=== PATIENT | female | born 1995 | race Caucasian/White ===

== ENCOUNTER 2018-06-13 07:39 | Emergency (ER) | payer SELFPAY ==
[2018-06-13] MEDS ORDERED: Clindamycin HCl 150 MG Cap PO ONE (08:05)
[2018-06-13] MEDS ORDERED: HYDROmorphone 1 MG/ML Syringe IM ONE (08:06)
[2018-06-13] MEDS ORDERED: cefTRIAXone 1 GM, Lidocaine 1% 2.1 ML IM SCH ×2 (08:15)
--- NOTE | 2018-06-13 08:16 | EDM.PDOC ---
ED HPI GENERAL MEDICAL PROBLEM - General Chief Complaint: ENT Problem Stated Complaint: DENTAL COMPLAINT Time Seen by Provider: 06/13/18 07:54 Source of Information: Reports: Patient History Limitations: Reports: No Limitations - History of Present Illness INITIAL COMMENTS - FREE TEXT/NARRATIVE: The patient presents with dental pain and swelling. She said this all started on Thursday with some dental pain and the swelling increased to the left lower jaw. She saw her dentist on Thursday and he gave her a shot of Rocephin and put her on amoxicillin. Her dentist tried to drain the abscess but nothing would come out after the incision. She is having more thomson and swelling to the left lower jaw. She is to see the dentist on Thursday for further treatment. She has no fever or chills. 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 Left Lower Oral/Mouth Pain Score (Numeric/FACES): 8 - Related Data Allergies Allergy/AdvReac Type Severity Reaction Status Date / Time No Known Allergies Allergy Verified 10/03/17 17:26 CDT Home Meds: Home Meds Amoxicillin 500 mg PO TID 06/13/18 [History] Past Medical History HEENT History: Reports: None Cardiovascular History: Reports: None Respiratory History: Reports: None Gastrointestinal History: Reports: None Genitourinary History: Reports: None 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: Musculoskeletal History: Reports: Other (See Below) Neurological History: Reports: None Psychiatric History: Reports: Addiction, Anxiety Endocrine/Metabolic History: Reports: None Hematologic History: Reports: None Immunologic History: Reports: None Oncologic (Cancer) History: Reports: None Dermatologic History: Reports: None - Infectious Disease History Infectious Disease History: Reports: Chicken Pox - Past Surgical History HEENT Surgical History: Reports: Oral Surgery Social & Family History - Family History Family Medical History: Noncontributory - Tobacco Use Smoking Status *Q: Current Every Day Smoker Years of Tobacco use: 6 Packs/Tins Daily: 0.5 Used Tobacco, but Quit: No - Caffeine Use Caffeine Use: Reports: Soda - Recreational Drug Use Recreational Drug Use: No ED ROS ENT - Review of Systems Review Of Systems: See Below Constitutional: Reports: No Symptoms HEENT: Reports: Other (Left lower jaw swelling and tenderness) Respiratory: Reports: No Symptoms Cardiovascular: Reports: No Symptoms Endocrine: Reports: No Symptoms : Reports: No Symptoms Musculoskeletal: Reports: No Symptoms ED EXAM, ENT - Physical Exam Exam: See Below Exam Limited By: No Limitations General Appearance: Alert, No Apparent Distress Ears: Normal External Exam Nose: Normal Inspection Mouth/Throat: Other (Moderate swelling to the left lower jaw with pain upon palpation) Head: Atraumatic, Normocephalic Neck: Lymphadenopathy (L) Respiratory/Chest: No Respiratory Distress Extremities: Normal Inspection Neurological: Alert, Oriented, No Motor/Sensory Deficits ED I&D PROCEDURES - I&D Site: Left jaw line Skin prep: Saline Local anesthesia - Lidocaine (Xylocaine): Other (Sensorcaine 0.5%) Local Anesthetic Volume: 2cc Area Incised With: Needle Drainage: Purulent, Bloody Probed to Break Up Loculations: No Complications: No Course - Vital Signs Last Recorded V/S: Last Vital Signs Temp 97.8 F 06/13/18 07:45 Pulse 121 H 06/13/18 07:45 Resp 18 06/13/18 07:45 BP 118/67 06/13/18 07:45 Pulse Ox 98 06/13/18 07:45 - Orders/Labs/Meds Orders: Active Orders 24 hr Category Date Time Status cefTRIAXone [Rocephin] 1 gm Med 06/13/18 08:15 Active Lidocaine 1% [Xylocaine 1%] 2.1 ml IM Q24H Medication Orders Ceftriaxone Sodium 1 gm/ (Lidocaine HCl 2.1 ml) 0 gm IM Q24H MASON Last Admin: 06/13/18 08:17 Dose: 2.7 inj Meds: Medications Generic Name Dose Route Start Last Admin Trade Name Freq PRN Reason Stop Dose Admin Ceftriaxone Sodium 1 gm/ 0 gm 06/13/18 08:15 06/13/18 08:17 Lidocaine HCl 2.1 ml IM 2.7 inj Q24H MASON Administration Discontinued Medications Generic Name Dose Route Start Last Admin Trade Name Freq PRN Reason Stop Dose Admin Clindamycin HCl 450 mg 06/13/18 08:05 06/13/18 08:18 Cleocin PO 06/13/18 08:06 450 mg ONETIME ONE Administration Hydromorphone HCl 1 mg 06/13/18 08:06 06/13/18 08:18 Dilaudid IM 06/13/18 08:07 1 mg ONETIME ONE Administration - Re-Assessments/Exams Free Text/Narrative Re-Assessment/Exam: 06/13/18 08:16 I ordered another shot of rocephin. It appears she has had 2 shots in the past few days. I also gave he a shot of dilaudid and I will switch her to clindamycin. 06/13/18 08:42 I did attempt to aspirate the abscess. I found a fluid collection with the US. I used an 18 gauge needle to try to drain the abscess. There was some purulent drainage initially and then there was just blood. The patient is going back to the dentist tomorrow. She will be referred on to the oral surgeon if she is not getting better. Departure - Departure Time of Disposition: 08:45 Disposition: Home, Self-Care 01 Condition: Good Clinical Impression: Dental abscess - Discharge Information *PRESCRIPTION DRUG MONITORING PROGRAM REVIEWED*: No *COPY OF PRESCRIPTION DRUG MONITORING REPORT IN PATIENT MIGUELITO: No Referrals: PCP,None [Primary Care Provider] - Forms: ED Department Discharge Additional Instructions: Take the clindamycin 450mg 3 times per day and take the hydrocodone as needed for pain. Put a warm compress on your face for 10 minutes 5 times per day. Please return if you are worse. Follow up with you dentist tomorrow. - My Orders Last 24 Hours: My Active Orders 06/13/18 08:15 cefTRIAXone [Rocephin] 1 gm Lidocaine 1% [Xylocaine 1%] 2.1 ml IM Q24H - Assessment/Plan Last 24 Hours: My Active Orders 06/13/18 08:15 cefTRIAXone [Rocephin] 1 gm Lidocaine 1% [Xylocaine 1%] 2.1 ml IM Q24H
== END 2018-06-13 08:54 | disposition home or self-care (01) ==
LOC: JD.ED 07:39
DX: K04.7 Periapical abscess without sinus (principal); F17.210 Nicotine dependence, cigarettes, uncomplicated
CPT/HCPCS: 41800; 96372; 99283; A9270; J0696; J1170; J2001

== ENCOUNTER 2019-08-29 10:06 | Emergency (ER) | payer SELFPAY ==
--- NOTE | 2019-08-29 10:48 | EDM.PDOC ---
ED HPI GENERAL MEDICAL PROBLEM - General Chief Complaint: Upper Extremity Injury/Pain Stated Complaint: RT HAND FINGERS SWOLLEN Time Seen by Provider: 08/29/19 10:35 Source of Information: Reports: Patient History Limitations: Reports: No Limitations - History of Present Illness INITIAL COMMENTS - FREE TEXT/NARRATIVE: 24-year-old female presents to the ED for evaluation of right hand pain. It is actually more in her second and third fingers primarily involving the PIP joints. She reports for the last 2 weeks the pain has gradually intensified and wakes her up in the morning. She cannot make a fist in the morning and it takes a while with regular movement before it pain eases up. No known injuries to the fingers. 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 Therefore the hand is under duress i.e. lifting all day long. She is right-hand dominant. Also developing some slight pain in her left third finger recently. She denies pain in her feet knees wrists elbows. Family history of connective tissue disorder or rheumatoid arthritis etc. Not remember any injuries to the fingers patient reports at times the pain seems to radiate up her dorsal hand and into her forearm. Onset: Today Onset Date: 08/16/19 Duration: Day(s):, Getting Worse Location: Reports: Upper Extremity, Right (Pain primarily in the PIP joints of her right second and third fingers.) Quality: Reports: Ache, Throbbing, Other Severity: Moderate (Admitted mobility first thing in the morning.) Improves with: Reports: None Worsens with: Reports: Movement (Plastic try to make a fist worsening in the morning. Gets easier as the day goes on) Context: Reports: Other (Chinedu is occurrence). 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: NSAIDS (Ibuprofen as needed), Other (see below) (None.) Right Hand Pain Score (Numeric/FACES): 8 - Related Data Allergies Allergy/AdvReac Type Severity Reaction Status Date / Time No Known Allergies Allergy Verified 08/29/19 10:17 Home Meds: Home Meds predniSONE [Prednisone] 20 mg PO ASDIRECTED #15 tablet 08/29/19 [Rx] Past Medical History HEENT History: Reports: None Cardiovascular History: Reports: None Respiratory History: Reports: None Gastrointestinal History: Reports: None Genitourinary History: Reports: None 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: Musculoskeletal History: Reports: Other (See Below) Neurological History: Reports: None Psychiatric History: Reports: Addiction, Anxiety Endocrine/Metabolic History: Reports: None Hematologic History: Reports: None Immunologic History: Reports: None Oncologic (Cancer) History: Reports: None Dermatologic History: Reports: None - Infectious Disease History Infectious Disease History: Reports: Chicken Pox - Past Surgical History HEENT Surgical History: Reports: Oral Surgery Social & Family History - Family History Family Medical History: Noncontributory - Tobacco Use Smoking Status *Q: Current Every Day Smoker Years of Tobacco use: 9 Packs/Tins Daily: 0.5 - Caffeine Use Caffeine Use: Reports: Soda - Recreational Drug Use Recreational Drug Use: No - Living Situation & Occupation Living situation: Reports: Single Occupation: Employed Review of Systems - Review of Systems Review Of Systems: See Below Constitutional: Reports: No Symptoms Eyes: Reports: No Symptoms Ears: Reports: No Symptoms Nose: Reports: No Symptoms Mouth/Throat: Reports: No Symptoms Respiratory: Reports: No Symptoms Cardiovascular: Reports: No Symptoms GI/Abdominal: Reports: No Symptoms Musculoskeletal: Reports: Hand Pain ED EXAM, GENERAL - Physical Exam Exam: See Below Exam Limited By: No Limitations General Appearance: Alert, WD/WN, No Apparent Distress, Other (Vital signs show temperature 36.2. Heart rate 79 sinus respiratory is 20 O2 sats 96% on room air. BP 117/63) Extremities: Other (Emanation was limited to the right and left hands. There is some's very slight swelling of the proximal phalanx and up to the PIP joint of particularly the right third finger but also mildly on the right second finger in the same distribution. There is some pain on squeeze test of the PIP joints. The MCP joints appear to be normal. On the left hand she has some erythema of the third finger dorsally. Again some mild pain over the PIP joint. There is no inflammation of the MCP joints to suggest rheumatoid arthritis. She is able to make a full fist at this time although she reports its painful.) Neurological: Alert, Oriented, CN II-XII Intact, Normal Cognition, Normal Gait Psychiatric: Normal Affect, Normal Mood Skin Exam: Warm, Dry, Intact, Normal Color, No Rash Course - Vital Signs Last Recorded V/S: Last Vital Signs Temp 36.2 C 08/29/19 10:14 Pulse 79 08/29/19 10:14 Resp 20 08/29/19 10:14 BP 117/63 08/29/19 10:14 Pulse Ox 96 08/29/19 10:14 - Radiology Interpretation Free Text/Narrative:: 24-year-old female presents to the ED with painful finger joints particular the PIP joints of both her right second and third fingers. No known injuries. She states is been painful for somewhere between 10 and 14 days. It is worse first thing in the morning and wakes her up. She states she has very limited mobility first thing in the morning due to stiffness and pain. Over period of an hour she can usually work the stiffness and pain out of the hand. 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 She has no known injuries to the fingers. At present she has full range of motion with some pain on squeeze test of the PIP joints. There is mild soft tissue swelling in the proximal phalanges of both the second and third fingers of the right hand. Of note she is right-hand dominant. He denies possibility of . Plan she will have three-view x-ray of her right hand performed. - Re-Assessments/Exams Free Text/Narrative Re-Assessment/Exam: 08/29/19 11:34 the right hand reveal soft tissue swelling along the PIP joints of the second and third fingers. No obvious destructive changes appreciated in any of the joints in her hand. I suspect she is jammed up the joints and cause the current pain syndrome. She is too young to really have developed significant osteoarthritic change. Plan Deltasone 20 mg twice daily for 5 days with breakfast and supper and then once in the morning only for another 5 days. She can still take Motrin and/or Aleve as needed for pain relief. Departure - Departure Time of Disposition: 11:35 Disposition: Home, Self-Care 01 Condition: Fair Clinical Impression: Synovitis of right hand - Discharge Information *PRESCRIPTION DRUG MONITORING PROGRAM REVIEWED*: Not Applicable *COPY OF PRESCRIPTION DRUG MONITORING REPORT IN PATIENT MIGUELITO: Not Applicable Prescriptions: predniSONE [Prednisone] 20 mg PO ASDIRECTED #15 tablet Referrals: PCP,None [Primary Care Provider] - Forms: ED Department Discharge, ED Return to Work/School Form Additional Instructions: Evaluation in the emergency room today in regards to pain and swelling of the second and third fingers in the PIP joints. History of injury. Pain syndrome for between 10 and 14 days. X-rays of the hands show no abnormalities of the bones or joints. However examination reveals swelling of the PIP joints of both the second and third fingers. This means there is an inflammation of the joint lining causing current pain and limited mobility due to swelling. Suggest treatment with Aleve 2 tablets every 8 hours to reduce pain and inflammation. Deltasone or prednisone 20 mg in the morning and at bedtime for 5 days then once in the morning only for another 5 days to reduce pain and inflammation. If pain comes back or swelling comes back after finishing the medication please follow- up with your personal care physician for further investigations Sepsis Event Note (ED) - Evaluation Sepsis Screening Result: No Definite Risk - Focused Exam Vital Signs: Vital Signs Temp Pulse Resp BP Pulse Ox 08/29/19 10:14 36.2 C 79 20 117/63 96
--- NOTE | 2019-08-29 10:59 | CR ---
Right hand: 4 views of the right hand were obtained. Comparison: No prior hand exam. Joint spaces are maintained. No fracture, dislocation or other bony abnormality is appreciated. Impression: 1. No abnormality is appreciated on 4 view right hand exam. Diagnostic code #1 This report was dictated in MDT
== END 2019-08-29 11:47 | disposition home or self-care (01) ==
LOC: JD.ED 10:06
DX: M65.9 Synovitis and tenosynovitis, unspecified (principal); F17.210 Nicotine dependence, cigarettes, uncomplicated
CPT/HCPCS: 73130-26-RT; 73130-RT; 99283; 99283-25

== ENCOUNTER 2019-11-11 12:03 | Emergency (ER) | payer SELFPAY ==
--- NOTE | 2019-11-11 12:58 | EDM.PDOCBH ---
ED HPI GENERAL MEDICAL PROBLEM - General Chief Complaint: Drug or Alcohol Abuse Stated Complaint: MED CLEARANCE Time Seen by Provider: 11/11/19 12:57 Source of Information: Reports: Patient History Limitations: Reports: No Limitations - History of Present Illness INITIAL COMMENTS - FREE TEXT/NARRATIVE: 24-year-old female presents to the ED for medical clearance examination in [facility] for admission to the [facility] crisis center bed here in [place]. She states that she is . By dates she had would be 13 weeks gestation with last almost a period around 08 August. She has a chronic opioid addiction. She states she used to be a heroin user from age [age] and then became sober. She has been smoking opioids since May and June of this year primarily Roxicodone. Last use was yesterday. She rarely drinks any alcohol. She smokes 10 to 15 cigarettes daily. She does smoke marijuana intermittently. She denies any recent intravenous drug use. She has used methamphetamines in the past as well but nothing for the last 2 to 3 years. Onset: Other (Being admitted to [facility] center to kick opioid addiction) Duration: Chronic Location: Reports: Generalized (Chronic polysubstance abuse.) Severity: Moderate Improves with: Reports: None Worsens with: Reports: None Context: Reports: Other (Polysubstance abuse most Jayant with opioid addiction.). 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 (see below) (None.) - Related Data Allergies Allergy/AdvReac Type Severity Reaction Status Date / Time No Known Allergies Allergy Verified 11/11/19 12:25 Home Meds: Home Meds LORazepam [Ativan] 1 mg PO ASDIRECTED #10 tablet 11/11/19 [Rx] Past Medical History HEENT History: Reports: None Cardiovascular History: Reports: None Respiratory History: Reports: None Gastrointestinal History: Reports: None Genitourinary History: Reports: None 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 He was methamphetamines in the past. Uses marijuana as needed. Rarely drinks alcohol) Endocrine/Metabolic History: Reports: None Hematologic History: Reports: None Immunologic History: Reports: None Oncologic (Cancer) History: Reports: None Dermatologic History: Reports: None - Infectious Disease History Infectious Disease History: Reports: Chicken Pox - Past Surgical History HEENT Surgical History: Reports: Oral Surgery Social & Family History - Family History Family Medical History: Noncontributory - Tobacco Use Smoking Status *Q: Current Every Day Smoker Years of Tobacco use: 9 Packs/Tins Daily: 0.5 - Caffeine Use Caffeine Use: Reports: Coffee, Soda - Recreational Drug Use Recreational Drug Use: Yes Drug Use in Last 12 Months: Yes Recreational Drug Type: Reports: Other (see below) Other Recreational Drug Type: "Krystina" Recreational Drug Use Frequency: Daily - Living Situation & Occupation Living situation: Reports: Single Occupation: Employed ED ROS GENERAL - Review of Systems Review Of Systems: See Below Constitutional: Reports: Malaise, Weakness, Fatigue, Decreased Appetite. Denies: Fever, Chills HEENT: Reports: No Symptoms Respiratory: Reports: No Symptoms Endocrine: Reports: Fatigue (He believes is due to .) GI/Abdominal: Reports: Constipation (Occasional problems with constipation.) : Reports: Frequency Musculoskeletal: Reports: No Symptoms Skin: Reports: No Symptoms Neurological: Reports: No Symptoms Psychiatric: Reports: Cravings (Opioid addiction) Hematologic/Lymphatic: Reports: No Symptoms Immunologic: Reports: No Symptoms ED EXAM, BEHAVIORAL HEALTH - Physical Exam Exam: See Below Exam Limited By: No Limitations General Appearance: Alert, WD/WN, No Apparent Distress, Other (. Glazed and she appears slightly high. Temperature is 36.6. Pulse is 88 and sinus respiratory to 16 with O2 sats of 96% room air BP 109/59.) Eye Exam: Bilateral Eye: Normal Inspection (The glazed appearance to the eyes suggestive of intoxication), PERRL Throat/Mouth: Other Head: Atraumatic, Normocephalic (Lips are mildly dry is her tongue as does her tongue.) Neck: Normal Inspection, Supple, Non-Tender, Full Range of Motion. No: Lymphadenopathy (L), Lymphadenopathy (R) Respiratory/Chest: No Respiratory Distress, Lungs Clear, Normal Breath Sounds, No Accessory Muscle Use, Chest Non-Tender. No: Rhonchi, Wheezing Cardiovascular: Normal Peripheral Pulses, Regular Rate, Rhythm, No Edema, No Gallop, No Murmur, No Rub GI/Abdominal: Normal Bowel Sounds, Soft, Non-Tender, No Organomegaly, No Distention, No Abnormal Bruit, Pelvis Stable, Other (I could not palpate the uterus suprapubically.) Back Exam: Normal Inspection, Full Range of Motion. No: CVA Tenderness (L), CVA Tenderness (R) Extremities: Normal Inspection, Normal Range of Motion, Non-Tender, No Pedal Edema Neurological: Alert, Normal Mood/Affect, CN II-XII Intact, Normal Cognition, No Motor/Sensory Deficits, Oriented x 3 Psychiatric: Alert, Normal Affect, Normal Cognition, Normal Mood, Oriented Skin Exam: Warm, Dry, Intact, Normal color, No rash, Other (He has no evidence of any recent track mcgee to suggest intravenous drug use.) COURSE, BEHAVIORAL HEALTH COMP - Course Vital Signs: Last Vital Signs Temp 36.4 C 11/11/19 16:30 Pulse 83 11/11/19 16:30 Resp 16 11/11/19 16:30 BP 141/126 H 11/11/19 16:30 Pulse Ox 97 11/11/19 16:30 Orders, Labs, Meds: Laboratory Tests 11/11/19 11/11/19 11/11/19 Range/Units 13:20 13:20 13:20 WBC 9.03 (3.98-10.04) K/mm3 RBC 3.77 L (3.98-5.22) M/mm3 Hgb 10.6 L (11.2-15.7) gm/dl Hct 32.8 L (34.1-44.9) % MCV 87.0 (79.4-94.8) fl MCH 28.1 (25.6-32.2) pg MCHC 32.3 (32.2-35.5) g/dl RDW Std Deviation 42.9 (36.4-46.3) fL Plt Count 215 (182-369) K/mm3 MPV 11.1 (9.4-12.3) fl Neut % (Auto) 64.4 (34.0-71.1) % Lymph % (Auto) 26.1 (19.3-51.7) % [place] % (Auto) 6.5 (4.7-12.5) % Eos % (Auto) 2.4 (0.7-5.8) Baso % (Auto) 0.4 (0.1-1.2) % Neut # (Auto) 5.80 (1.56-6.13) K/mm3 Lymph # (Auto) 2.36 (1.18-3.74) K/mm3 [place] # (Auto) 0.59 H (0.24-0.36) K/mm3 Eos # (Auto) 0.22 (0.04-0.36) K/mm3 Baso # (Auto) 0.04 (0.01-0.08) K/mm3 Sodium 137 (136-145) mEq/L Potassium 3.2 L (3.5-5.1) mEq/L Chloride 105 (98-107) mEq/L Carbon Dioxide 24 (21-32) mEq/L Anion Gap 11.2 (5-15) BUN 13 (7-18) mg/dL Creatinine 0.6 (0.55-1.02) mg/dL Est Cr Clr Drug Dosing 123.77 mL/min Estimated GFR (MDRD) > 60 (>60) mL/min BUN/Creatinine Ratio 21.7 H (14-18) Glucose 99 (74-106) mg/dL Calcium 7.6 L (8.5-10.1) mg/dL Total Bilirubin 0.3 (0.2-1.0) mg/dL AST 14 L (15-37) U/L ALT 14 (14-59) U/L Alkaline Phosphatase 42 L (46-116) U/L Total Protein 5.7 L (6.4-8.2) g/dl Albumin 2.6 L (3.4-5.0) g/dl Globulin 3.1 gm/dL Albumin/Globulin Ratio 0.8 L (1-2) TSH 3rd Generation 0.937 (0.358-3.74) uIU/mL Urine Opiates Screen (CXDGUP=666) Ur Buprenorphine Scrn (CUTOFF=10) Ur Oxycodone Screen (IXP5SX=447) Urine Methadone Screen (WSRPVW=827) Ur Propoxyphene Screen (AAIRVB=753) Ur Barbiturates Screen (MMTXTZ=756) Ur Tricyclics Screen (PNYYJQ=266) Ur Phencyclidine Scrn (CUTOFF=25) Ur Amphetamine Screen (EHBNBP=449) U Methamphetamines Scrn (MHKPRF=722) U Benzodiazepines Scrn (LXRGIB=016) U Cocaine Metab Screen (IJFDUI=037) U Marijuana (THC) Screen (CUTOFF=50) Ethyl Alcohol 0.00 (0.00) gm% Hepatitis C Antibody Positive H (NEGATIVE) 11/11/19 Range/Units 13:30 WBC (3.98-10.04) K/mm3 RBC (3.98-5.22) M/mm3 Hgb (11.2-15.7) gm/dl Hct (34.1-44.9) % MCV (79.4-94.8) fl MCH (25.6-32.2) pg MCHC (32.2-35.5) g/dl RDW Std Deviation (36.4-46.3) fL Plt Count (182-369) K/mm3 MPV (9.4-12.3) fl Neut % (Auto) (34.0-71.1) % Lymph % (Auto) (19.3-51.7) % [place] % (Auto) (4.7-12.5) % Eos % (Auto) (0.7-5.8) Baso % (Auto) (0.1-1.2) % Neut # (Auto) (1.56-6.13) K/mm3 Lymph # (Auto) (1.18-3.74) K/mm3 [place] # (Auto) (0.24-0.36) K/mm3 Eos # (Auto) (0.04-0.36) K/mm3 Baso # (Auto) (0.01-0.08) K/mm3 Sodium (136-145) mEq/L Potassium (3.5-5.1) mEq/L Chloride (98-107) mEq/L Carbon Dioxide (21-32) mEq/L Anion Gap (5-15) BUN (7-18) mg/dL Creatinine (0.55-1.02) mg/dL Est Cr Clr Drug Dosing mL/min Estimated GFR (MDRD) (>60) mL/min BUN/Creatinine Ratio (14-18) Glucose (74-106) mg/dL Calcium (8.5-10.1) mg/dL Total Bilirubin (0.2-1.0) mg/dL AST (15-37) U/L ALT (14-59) U/L Alkaline Phosphatase (46-116) U/L Total Protein (6.4-8.2) g/dl Albumin (3.4-5.0) g/dl Globulin gm/dL Albumin/Globulin Ratio (1-2) TSH 3rd Generation (0.358-3.74) uIU/mL Urine Opiates Screen Negative (IGVZSK=743) Ur Buprenorphine Scrn Negative (CUTOFF=10) Ur Oxycodone Screen Negative (IWT5JK=967) Urine Methadone Screen Negative (FXMLQQ=253) Ur Propoxyphene Screen Negative (EUCDCV=351) Ur Barbiturates Screen Negative (SAAVXC=525) Ur Tricyclics Screen Negative (WECVFT=875) Ur Phencyclidine Scrn Negative (CUTOFF=25) Ur Amphetamine Screen Presumptive positive H (YQLQBC=074) U Methamphetamines Scrn Presumptive positive H (PDHHQI=266) U Benzodiazepines Scrn Presumptive positive H (YYBWIC=302) U Cocaine Metab Screen Negative (LNWCFL=288) U Marijuana (THC) Screen Presumptive positive H (CUTOFF=50) Ethyl Alcohol (0.00) gm% Hepatitis C Antibody (NEGATIVE) Re-Assessment/Re-Exam: Patient presents to the ED for medical clearance examination in preparation for possible admission to the residential crisis center. She is 13 weeks gestation 1 para 0. She has been smoking opioids over since May and July of this year. Primarily Roxicodone. Last use was yesterday. Occasional marijuana use. Nicotine addiction 10 cigarettes daily rare alcohol use. Has not used any intravenous drugs for the last 2 years. She is not sure of her hepatitis C status. Plan routine labs will be collected as well as a urine drug screen and blood alcohol level. Re-Assessment/Re-Exam Date: 11/11/19 (Sodium is 137 potassium slightly low at 3.2. Chloride 105 with a bicarb of 24. Anion gap is 11.2. BUN is 13. Creatinine is 0.6. GFR is greater than 60. Glucose is 99 with a calcium slightly low at 7.6 indicating she is not been eating much lately. Liver function is normal. Total protein is 5.7 with an albumin fraction low at 2.6 again from not eating much. TSH is normal at 0.937. Blood alcohol is 0.00 hepatitis C antibody positive.) Re-Assessment/Re-Exam Time: 15:07 (Urine drug screen is presumptively positive for amphetamines and methamphetamines benzodiazepines and marijuana. Blood alcohol is 0.00) Medical Clearance: 11/11/19 16:33 Patient is cleared medically therefore for admission to the residential crisis center. I will write a prescription for Ativan 1 mg strength to be used 1 every 8 hours for the next 2 days and then 1 every 12 hours for 2 more days to help with methamphetamine withdrawal. Departure - Departure Time of Disposition: 16:34 Disposition: Home, Self-Care 01 Condition: Fair Clinical Impression: Polysubstance abuse, Second trimester , Drug dependence - Discharge Information *PRESCRIPTION DRUG MONITORING PROGRAM REVIEWED*: Not Applicable *COPY OF PRESCRIPTION DRUG MONITORING REPORT IN PATIENT MIGUELITO: Not Applicable Prescriptions: LORazepam [Ativan] 1 mg PO ASDIRECTED #10 tablet Instructions: Substance Use Disorder, Alcohol Use During , Finding Treatment for Addiction Referrals: Alondra Marie MD [Primary Care Provider] - Forms: ED Department Discharge Additional Instructions: Evaluation in the emergency room today in regards to medical clearance examination for admission to the residential crisis center to help you get clean from drug dependency. Urine drug screen today was positive for methamphetamines, amphetamines and marijuana. It was negative for opioids which you state you recently ingested. It was also positive for benzodiazepines. Hepatitis C screen was also positive from previous intravenous drug use. It should be checked for the type of virus after you are finished with the to see if you are a candidate for hepatitis C treatment. Current drugs cannot be used in . Prescription written for Ativan to be taken 1 tablet every 8 hours for the next 2 days and then 1 tablet every 12 hours for 2 days to assist with withdrawal from methamphetamines and other stimulants. Sepsis Event Note (ED) - Evaluation Sepsis Screening Result: No Definite Risk
== END 2019-11-11 16:46 | disposition home or self-care (01) ==
LOC: JD.ED 12:03
DX: O99.322 Drug use complicating pregnancy, second trimester (principal); O99.332 Smoking (tobacco) complicating pregnancy, second trimester; F17.210 Nicotine dependence, cigarettes, uncomplicated
CPT/HCPCS: 36415; 80053; 80306; 80307; 84443; 85025; 86803; 99282; 99284

== ENCOUNTER 2020-03-22 10:21 | Emergency (ER) | payer SELFPAY ==
--- NOTE | 2020-03-22 10:35 | EDM.PDOC ---
ED HPI GENERAL MEDICAL PROBLEM - General Chief Complaint: General Stated Complaint: SWELLING OF HANDS X 1 WEEKS AND HIVES X 1 DAY Time Seen by Provider: 03/22/20 10:35 - History of Present Illness INITIAL COMMENTS - FREE TEXT/NARRATIVE: 24-year-old female returns the emergency room with hand pain and swelling mostly involving her left hand. She also has a rash developing on the right side of her neck. For the last several weeks patient's had increasing pain in her left hand and to a lesser degree in her right hand involving her middle finger and to a lesser degree index finger and the radial aspect of her ring finger. She awakens and has some significant discomfort this gets better throughout the day. The patient has had a similar problem in the past involving both hands and it improved on prednisone. Patient broke out in a rash on the right side of her neck couple of days ago. It pérez she is not sure if is getting any worse from yesterday. She has a history of having shingles in the past. 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: Musculoskeletal History: Reports: Other (See Below) Neurological History: Reports: None Psychiatric History: Reports: Addiction, Anxiety Endocrine/Metabolic History: Reports: None Hematologic History: Reports: None Immunologic History: Reports: None Oncologic (Cancer) History: Reports: None Dermatologic History: Reports: None - Infectious Disease History Infectious Disease History: Reports: Chicken Pox - Past Surgical History HEENT Surgical History: Reports: Oral Surgery Social & Family History - Family History Family Medical History: No Pertinent Family History - Caffeine Use Caffeine Use: Reports: Coffee, Soda - Living Situation & Occupation Living situation: Reports: Single Occupation: Employed ED ROS GENERAL - Review of Systems Review Of Systems: See Below Constitutional: Reports: No Symptoms HEENT: Reports: No Symptoms Respiratory: Reports: No Symptoms Cardiovascular: Reports: No Symptoms GI/Abdominal: Reports: No Symptoms ED EXAM, GENERAL - Physical Exam Exam: See Below Exam Limited By: No Limitations General Appearance: Alert, No Apparent Distress Eye Exam: Bilateral Eye: Normal Inspection Ears: Normal External Exam, Normal Canal, Hearing Grossly Normal, Normal TMs Nose: Normal Inspection, Normal Mucosa, No Blood Throat/Mouth: Normal Inspection, Normal Lips, Normal Teeth, Normal Gums, Normal Oropharynx, Normal Voice, No Airway Compromise Head: Atraumatic, Normocephalic Neck: Normal Inspection, Supple, Non-Tender, Full Range of Motion Respiratory/Chest: No Respiratory Distress, Lungs Clear, Normal Breath Sounds Cardiovascular: Regular Rate, Rhythm, No Edema, No Murmur Extremities: Other (Examination of her left hand shows numbness and discomfort in the carpal tunnel distribution sparing the thumb however. She has no involvement on the ulnar aspect of the ring finger and has involvement in the radial aspect of the ring finger middle finger is the worst. She has a positive Tinel's sign. Reverse Phalen's is positive as well. Patient gets some discomfort like this in her right hand as well but it is not too bad at this time.) Skin Exam: Other (Patient is developing a rash on the right side of her neck that almost follows a dermatomal distribution with a couple of satellite lesions some of these are blistering looks like one area has ruptured and it has a burning sensation according to the patient this could be consistent with early shingles.) Course - Vital Signs Last Recorded V/S: Last Vital Signs Temp 36.2 C 03/22/20 10:28 Pulse 106 H 03/22/20 10:28 Resp 16 03/22/20 10:28 BP 126/70 03/22/20 10:28 Pulse Ox 98 03/22/20 10:28 - Re-Assessments/Exams Free Text/Narrative Re-Assessment/Exam: 03/22/20 11:12 Recommended the patient take up some [id number] wrist splints to wear mostly at night. We will start naproxen. I will start her on Valtrex. The patient was seen here almost a year ago with what sounds like an inflammatory arthritis. At this time she does not have any significant joint swelling synovium does not palpate. However there is some uncertainty with this and I have strongly recommended that patient establish with a regular physician for continuity of care and if she has continued problems with her hand to start a rheumatology work-up. Departure - Departure Time of Disposition: 11:14 Disposition: Home, Self-Care 01 Clinical Impression: Carpal tunnel syndrome of left wrist, Shingles - Discharge Information Referrals: PCP,None [Primary Care Provider] - Forms: ED Department Discharge Additional Instructions: Return to the emergency room with any questions problems or worsening symptoms. You have been started on 2 medications. The first 1 is Valtrex or valacyclovir, this is an antiviral for suspected shingles developing on your neck. The second is naproxen this is like ibuprofen except only needs to be taken twice daily take it with your morning and evening meals you may discontinue this when your hand feel better. 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 They are to be worn primarily at night. However, you can use them during the day. Sepsis Event Note (ED) - Focused Exam Vital Signs: Vital Signs Temp Pulse Resp BP Pulse Ox 03/22/20 10:28 36.2 C 106 H 16 126/70 98
== END 2020-03-22 11:26 | disposition home or self-care (01) ==
LOC: JD.ED 10:21
DX: G56.02 Carpal tunnel syndrome, left upper limb (principal); B02.9 Zoster without complications; Z91.048 Other nonmedicinal substance allergy status
CPT/HCPCS: 99283

== ENCOUNTER 2020-04-17 12:53 | Emergency (ER) | payer SELFPAY ==
[2020-04-17] MEDS ORDERED: Lidocaine 1% 10 ML MDV INJECT ONE (13:13)
--- NOTE | 2020-04-17 13:20 | EDM.PDOC ---
ED HPI GENERAL MEDICAL PROBLEM - General Chief Complaint: Lower Extremity Injury/Pain Stated Complaint: ABSCESS ON THE BOTTOM OF FOOT Time Seen by Provider: 04/17/20 13:06 Source of Information: Reports: Patient, RN Notes Reviewed History Limitations: Reports: No Limitations - History of Present Illness INITIAL COMMENTS - FREE TEXT/NARRATIVE: Patient is a 24-year-old female who presents to the ED for a abscess on the bottom of her right foot. Patient noticed this started roughly 2 days ago, she is not aware of having any foreign object that she stepped on, or any other ins ulting injury. She notes that it is just getting increasingly painful and increasing in size. She has not lost any range of motion to her foot however again does states is very painful to walk on. She has been using some [id number] ibuprofen and heat but nothing seems to be working much. Patient's not had any fevers or chills, cough or shortness of breath, or any other sick-like symptoms. The area in question is roughly grape size. Treatments SEAM FINISHER: Reports: NSAIDS Right Foot Pain Score (Numeric/FACES): 10 - Related Data Allergies Allergy/AdvReac Type Severity Reaction Status Date / Time nickel Allergy Severe Itching Verified 04/17/20 13:05 Home Meds: Home Meds Naproxen [Naprosyn] 500 mg PO BID #20 tab 03/22/20 [Rx] Doxycycline [Vibramycin] 100 mg PO BID 7 Days #14 tab 04/17/20 [Rx] traMADol [Ultram] 50 mg PO Q6H PRN #6 tab 04/17/20 [Rx] Past Medical History HEENT History: Reports: None Cardiovascular History: Reports: None Respiratory History: Reports: None Gastrointestinal History: Reports: None Genitourinary History: Reports: None 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: Musculoskeletal History: Reports: Other (See Below) Neurological History: Reports: None Psychiatric History: Reports: Addiction, Anxiety Endocrine/Metabolic History: Reports: None Hematologic History: Reports: None Immunologic History: Reports: None Oncologic (Cancer) History: Reports: None Dermatologic History: Reports: None - Infectious Disease History Infectious Disease History: Reports: Chicken Pox, Hepatitis C - Past Surgical History HEENT Surgical History: Reports: Oral Surgery Social & Family History - Family History Family Medical History: No Pertinent Family History Oncologic: Reports: Breast - Tobacco Use Tobacco Use Status *Q: Current Every Day Tobacco User Years of Tobacco use: 10 Packs/Tins Daily: 0.5 - Caffeine Use Caffeine Use: Reports: Coffee, Soda, Tea - Recreational Drug Use Recreational Drug Use: No - Living Situation & Occupation Living situation: Reports: Single Occupation: Employed Review of Systems - Review of Systems Review Of Systems: Comprehensive ROS is negative, except as noted in HPI. ED EXAM, GENERAL - Physical Exam Exam: See Below Exam Limited By: No Limitations General Appearance: Alert, WD/WN, No Apparent Distress, Anxious (pt does appear to be somewhat anxious and picking at her hands) Respiratory/Chest: No Respiratory Distress, Lungs Clear, Normal Breath Sounds, No Accessory Muscle Use, Chest Non-Tender Cardiovascular: Normal Peripheral Pulses, Regular Rate, Rhythm, No Edema Peripheral Pulses: 2+: Radial (L), Radial (R), Dorsalis Pedis (L), Dorsalis Pedis (R) Extremities: Normal Range of Motion, Normal Capillary Refill, Other (roughly grape sized area to the plantar surface of the Right midline foot.). No: Increased Warmth, Redness Neurological: Alert, Oriented, Normal Cognition, No Motor/Sensory Deficits Psychiatric: Normal Affect, Normal Mood Skin Exam: Warm, Dry, Intact, Normal Color, No Rash ED TRAUMA EXTREMITY PROCEDURES - I&D Site: R plantar foot Skin Prep: Chlorhexidine (Hibiciens), Saline Local Anesthesia: Lidocaine: 1% Plain Local Anesthetic Volume: 4cc, 5cc Area Incised With: 11 Blade Drainage: Purulent, Bloody (pink tinged fluid), Small Amount Probed to Break Up Loculations: Yes Packed With: 1/2 in. Iodoform Sterile Dressing: Adhesive Dressing Complications: No Course - Vital Signs Last Recorded V/S: Last Vital Signs Temp 98.8 F 04/17/20 13:07 Pulse 96 04/17/20 13:07 Resp 16 04/17/20 13:07 BP 121/72 04/17/20 13:07 Pulse Ox 99 04/17/20 13:07 - Orders/Labs/Meds Orders: Active Orders 24 hr Category Date Time Status Foot 2V Rt [CR] Stat Exams 04/17/20 13:19 Ordered Meds: Medications Discontinued Medications Generic Name Dose Route Start Last Admin Trade Name Freminor PRN Reason Stop Dose Admin Lidocaine HCl 10 ml 04/17/20 13:13 04/17/20 13:31 Xylocaine 1% INJECT 04/17/20 13:14 10 ml ONETIME ONE Administration - Re-Assessments/Exams Free Text/Narrative Re-Assessment/Exam: 04/17/20 13:33 Patient presents to the ED for an abscess on the bottom of her foot, said she did not know she stepped on anything we did go ahead and order an x-ray to see if there was any sort of foreign body apparent, x-ray was performed and there is no metallic foreign body or other radiopaque foreign body made apparent on the x-ray, we will go ahead and move forward with the I&D at this time. Departure - Departure Time of Disposition: 14:01 Disposition: Home, Self-Care 01 Condition: Good Clinical Impression: Foot abscess, right - Discharge Information *PRESCRIPTION DRUG MONITORING PROGRAM REVIEWED*: Yes *COPY OF PRESCRIPTION DRUG MONITORING REPORT IN PATIENT MIGUELITO: No Instructions: Skin Abscess Referrals: PCP,None [Primary Care Provider] - Forms: ED Department Discharge Additional Instructions: You were evaluated in the ER today regarding a suspected skin infection. I you had an abscess on the bottom of your right foot, this was lanced at today's ER visit, and this was packed with gauze, to allow the wound to drain. Please keep this in place for the next 48 hours if possible. Once 48 hours is done, you may take the gauze out, it will look like a ribbon. You were given an antibiotic, doxycycline 100 mg twice daily x7 days please take as prescribed until the course is done or told otherwise by different provider. Please note that this antibiotic will take at least 48 hours to start working appropriately. You may try to use heat/ice packs to the area to help reduce pain/swelling. You may take 500 mg Tylenol or 600 mg ibuprofen every 6 hours as needed for further pain relief. Do not exceed 4000 mg Tylenol or 3200 mg ibuprofen in a 24-hour time span. You were given a prescription for tramadol, this is a pain medication you may use in case Tylenol/ibuprofen is not working. Use 1 tablet every 6 hours as needed for further pain relief. Please return to the ER at any time if your symptoms change or worsen. Sepsis Event Note (ED) - Evaluation Sepsis Screening Result: No Definite Risk - Focused Exam Vital Signs: Vital Signs Temp Pulse Resp BP Pulse Ox 04/17/20 13:07 98.8 F 96 16 121/72 99 - My Orders Last 24 Hours: My Active Orders 04/17/20 13:19 Foot 2V Rt [CR] Stat - Assessment/Plan Last 24 Hours: My Active Orders 04/17/20 13:19 Foot 2V Rt [CR] Stat
--- NOTE | 2020-04-17 14:19 | CR ---
Right foot: 2 views of the right foot were obtained. Comparison: No previous foot exam. Joint spaces are maintained within the right foot. No soft tissue radiopaque foreign object is appreciated. No acute fracture or other abnormality is appreciated. Impression: 1. Nothing acute is seen on 2 view right foot exam. 2. No radiopaque foreign object is seen. Diagnostic code #1
== END 2020-04-17 14:10 | disposition home or self-care (01) ==
LOC: JD.ED 12:53
DX: L02.611 Cutaneous abscess of right foot (principal); Z72.0 Tobacco use; Z91.048 Other nonmedicinal substance allergy status
CPT/HCPCS: 10060; 10061; 73620-26-RT; 73620-RT; 99283; 99283-25